=== PATIENT | male | born 1985 | race Caucasian/White ===

== ENCOUNTER 2019-09-16 16:17 | Emergency (ER) | payer OTHER ==
[~2019-09-16] VITALS: Ht 175.3 cm; Wt 68.0 kg
[2019-09-16 17:24] LABS: ABSOLUTE NEUTROPHILS 9.5 thou/uL (1.4-8.2); BASOPHILS 0.2 % (0.0-2.0); EOSINOPHILS 0.1 % (0.0-3.0); HEMOGLOBIN 15.8 gm/dL (14.0-18.0); LYMPHOCYTES 13.8 % (24.0-44.0); MCH 31.4 pg (26.0-34.0); MCHC 33.7 g/dL (28.0-37.0); MCV 93.4 fL (80.0-100.0); MONOCYTES 4.8 % (1.0-8.0); PLATELET COUNT 283 thou/uL (150-400); POLYS 81.1 % (36.0-66.0); RBC 5.03 mil/uL (4.50-6.00); RDW 12.6 % (10.5-14.5); WBC 11.7 thou/uL (4.0-11.0)
[2019-09-16 17:34] LABS: CALCIUM 9.1 mg/dL (8.5-10.1); CREATININE 0.9 mg/dL (0.7-1.3); POTASSIUM 4.1 mmol/L (3.5-5.1)
[2019-09-16 17:40] LABS: TOTAL BILIRUBIN 0.3 mg/dL (<0.1-1.0); TOTAL PROTEIN 7.6 g/dL (6.4-8.2)
[2019-09-16 19:47] LABS: URINE BILIRUBIN NEGATIVE (Negative); URINE BLOOD TRACE (Negative); URINE CLARITY CLEAR; URINE COLOR YELLOW; URINE GLUCOSE-RANDOM* NEGATIVE (Negative); URINE KETONES NEGATIVE (Negative); URINE LEUKOCYTES-REFLEX NEGATIVE (Negative); URINE NITRITE-REFLEX NEGATIVE (Negative); URINE PROTEIN (DIPSTICK) NEGATIVE (Negative); URINE UROBILINOGEN 0.2 E.U./dl (0.2-1.0)
[2019-09-16] MEDS ORDERED: ZOFRAN ODT4 MG PO (19:56)
[2019-09-16] MEDS ORDERED: PROMS25 WY RECTAL (19:56)
[2019-09-16] MEDS ORDERED: ZANTAC 150MG T150 M1 PO (19:56)
[2019-09-16 20:00] VITALS: BP 147/80
[2019-09-16 20:01] LABS: AMP/METHAMP Negative (Negative); BARBITURATES Negative (Negative); BENZODIAZEPINES Negative (Negative); COCAINE Negative (Negative); METHADONE Negative (Negative); OPIATES POSITIVE (Negative); PCP Negative (Negative)
== END 2019-09-16 20:00 | disposition home or self-care (01) ==
LOC: ER 16:17
PROVIDERS: Nurse Practitioner Family
DX: R10.84 Generalized abdominal pain (principal); R11.2 Nausea with vomiting, unspecified; F17.210 Nicotine dependence, cigarettes, uncomplicated; Z88.6 Allergy status to analgesic agent; Z88.8 Allergy status to other drugs, medicaments and biological substances